=== PATIENT | male | born 1960 | race African-American/Black ===

== ENCOUNTER → 2025-02-01 | Day surgery (SDC) | payer MEDICAID ==
[2025-01-30 11:03] LABS: Hemoglobin 13.9 g/dL (13.5-17.5); Mean Corpuscular Hemoglobin 26.7 pg (28.0-32.0); Nucleated Red Blood Cells % 0.1 %
[2025-01-30 11:05] LABS: Hematocrit 41.2 % (41.0-53.0); Mean Corpuscular Volume 79.2 fL (80.0-100.0)
[2025-01-30 11:07] LABS: Urine Protein, UAD Negative (Negative)
[2025-01-30 11:23] LABS: Alanine Aminotransferase 28 U/L (7-40); Alkaline Phosphatase 91 U/L (46-116); Anion Gap 11 (5-15); BUN/Creatinine Ratio 9.9 (10.0-20.0); Bilirubin, Total 0.4 mg/dL (0.2-1.0); Calcium 9.9 mg/dL (8.7-10.4); Carbon Dioxide 27 mmol/L (20-31); Chloride 103 mmol/L (98-107); Potassium 3.9 mmol/L (3.5-5.1); Sodium 141 mmol/L (136-145); Total Protein 8.1 g/dL (5.7-8.2)
[2025-01-30 11:30] LABS: INR 1.01 (0.9-1.15); Partial Thromboplastin Time 25.6 SEC (24.5-34.5); Prothrombin Time 10.7 sec (9.3-11.8)
[2025-01-30 11:31] LABS: Albumin 4.8 g/dL (3.2-4.8); Blood Urea Nitrogen 7 mg/dL (9-23); Glucose 148 mg/dL (74-106)
[~2025-02-01] VITALS: Ht 175.3 cm; Wt 90.7 kg
[~2025-02-01] MED LIST: GLUC-163 PO; MELO7.5T7 PO; MORI500C PO; ceFAZolin 2 GM/D5W50ml 0 ML IV ONE
== END | disposition home or self-care (01) ==
LOC: SUR 06:32
PROVIDERS: ATTEND Orthopaedic Surgery
DX: M17.12 Unilateral primary osteoarthritis, left knee (principal); Z53.8 Procedure and treatment not carried out for other reasons; Z79.899 Other long term (current) drug therapy
CPT/HCPCS: 36415; 80053; 81001; 85025; 85610; 85730; 86850; 86900; 86901; 87086